=== PATIENT | male | born 1955 | race African-American/Black ===

== ENCOUNTER 2025-08-06 10:35 | Outpatient (CLI) | payer MEDICARE, MEDICAID, SELFPAY ==
--- NOTE | ~2025-08-06 | CT_ITS ---
EXAMINATION: CT lung screening DATE: 08/06/2025 11:35 INDICATION: nicotine dependence TECHNIQUE: Computed tomography (CT) of the chest was performed without intravenous contrast. Additional 3D reconstructions utilizing coronal maximum intensity projection (MIP) were performed. Automated exposure control and iterative reconstruction technique were employed. The dose-length product was 95 .69 mGy-cm. COMPARISON: None FINDINGS: There are couple small calcified pleural plaques along the bilateral lung bases suggesting prior asbestos exposure. 3 mm nodule in the right upper lobe. No pneumonia, pulmonary edema or pleural effusion. Heart size is normal. Aortic valve calcification. No pericardial effusion. Thoracic aorta is normal in caliber. No pathologically enlarged thoracic lymphadenopathy. Visualized upper abdomen is unremarkable. 40 degrees thoracic dextroscoliosis with moderate to severe spondylosis. IMPRESSION: 1. . Lung-RADS category 2: Benign appearance or behavior. Continue annual screening with noncontrast low-dose chest CT in 12 months. Reviewed, dictated and finalized at location A. ESSING ARCHIVIST IMPRESSION: 1. . Lung-RADS category 2: Benign appearance or behavior. Continue annual scree kapil with noncontrast low-dose chest CT in 12 months.
== END 2025-08-06 10:36 | disposition home or self-care (01) ==
PROVIDERS: PCP Internal Medicine Infectious Disease; Visit Provider Internal Medicine Cardiovascular Disease
DX: Z12.2 Encounter for screening for malignant neoplasm of respiratory organs (principal); F17.210 Nicotine dependence, cigarettes, uncomplicated
CPT/HCPCS: 71271